=== PATIENT | female | born 1980 | race Two or more races ===

== ENCOUNTER 2024-03-20 13:08 | Emergency (ER) | payer BC, OTHER ==
[~2024-03-20] VITALS: Ht 157.5 cm; Wt 65.8 kg
[2024-03-20 13:41] LABS: BASOPHILS # (AUTO) 0.1 K/uL (0.0-0.2); BASOPHILS % (AUTO) 0.5 % (0.0-2.0); EOSINOPHILS % (AUTO) 0.4 % (0.0-6.0); HEMATOCRIT 40 % (33-45); HEMOGLOBIN 13.5 g/dL (11.5-14.8); LYMPHOCYTES # (AUTO) 2.8 K/uL (0.8-4.8); LYMPHOCYTES % (AUTO) 26.5 % (20.0-44.0); MEAN CORPUSCULAR HEMOGLOBIN 28 PG (26.0-33.0); MEAN CORPUSCULAR HGB CONC 34 g/dl (31.0-36.0); MEAN CORPUSCULAR VOLUME 82 fL (82-100); MONOCYTES # (AUTO) 0.8 K/uL (0.1-1.30); MONOCYTES % (AUTO) 7.2 % (2.0-12.0); NEUTROPHILS # (AUTO) 6.9 K/uL (1.8-8.9); NEUTROPHILS % (AUTO) 65.4 % (43.0-81.0); PLATELET COUNT (AUTO) 238 K/uL (150-450); RED BLOOD CELL COUNT(AUTO) 4.88 MIL/uL (4.0-5.2); RED CELL DISTRIBUTION WIDTH 13.7 % (11.5-15.0); WHITE BLOOD COUNT (AUTO) 10.6 K/uL (4.3-11.0)
[2024-03-20 14:11] LABS: CALCIUM, SERUM 9.4 mg/dL (8.5-10.1); CARBON DIOXIDE 28 mmol/L (21-32); CHLORIDE 102 mmol/L (98-107); CREATININE 0.9 mg/dL (0.6-1.3); GLUCOSE 86 mg/dL (74-106); POTASSIUM 3.4 mmol/L (3.5-5.1); SODIUM SERUM 137 mmol/L (136-145); UREA NITROGEN, BLOOD 13 mg/dL (7-18)
[2024-03-20] MEDS ORDERED: FAMO-131 PO (14:53)
[2024-03-20] MEDS ORDERED: LIDOCAINE VISCOUS 2% UD 15 ML UDC ONE (14:55)
[2024-03-20] MEDS ORDERED: MAG HYDROX/AL HYDROX/SIMETH 30 ML UDC ONE (14:55)
[2024-03-20] MEDS: MAG HYDROX/AL HYDROX/SIMETH 30 ML UDC PO ONE (15:03)
[2024-03-20] MEDS: IV NS 0.9% 1,000 ML BAG IV ONE (15:03)
[2024-03-20] MEDS: LIDOCAINE VISCOUS 2% UD 15 ML UDC MM ONE (15:03)
[2024-03-20] MEDS ORDERED: FAMOTIDINE/PF INJ 20 MG/2 ML VIAL IV ONE (15:04)
[2024-03-20] MEDS: FAMOTIDINE/PF INJ 20 MG/2 ML VIAL IV ONE (15:05)
[2024-03-20 15:50] VITALS: BP 138/87; TEMP 98; O2SAT 100
== END 2024-03-20 15:51 | disposition home or self-care (01) ==
LOC: ER 13:30
DX: R07.89 Other chest pain (principal); E87.6 Hypokalemia; R10.13 Epigastric pain
CPT/HCPCS: 99285; 96374; 71045; 96361; 93005 ×2; 85025; 80048; 36415; 84484; J3490; J7030